=== PATIENT | female | born 1980 | race Caucasian/White ===

== ENCOUNTER 2025-04-08 21:57 | Emergency (ER) | payer MEDICAID, SELFPAY ==
[2025-04-08 22:00] VITALS: BP 182/98
[2025-04-09] MEDS: KEFLEX 500 MG PO (01:04)
--- NOTE | 2025-04-09 21:09 | ED.SKININJ ---
HPI-Injury
General
Chief Complaint: Skin Problem
Source: patient
Exam Limitations: none
Time Seen by Provider: 04/09/25 00:49
Nursing documentation reviewed up to this point in time: agreed with
History of Present Illness-Injury
Is this injury a work related problem?: No
Is pt an associate of [facility]?: No
Initial Injury comments:
Patient to ED with complaint of pain redness and swelling to left great toe. States she had a fungus to this nail and nail fell off. SHe glued an artificial nail to replace original. Now notes redness and swelling. Brought self to ED for eval.
Past History
Past History
ED Past Medical History: None
Review of Systems
Review of Systems
Allergies reviewed?: Yes
All Other Systems: ROS reviewed and negative except as documented in HPI and ROS
Constitutional: Reports no symptoms
EENT: Reports no symptoms
Respiratory: Reports no symptoms
Cardiac: Reports no symptoms
ABD/GI: Reports no symptoms
: Reports no symptoms
Musculoskeletal: Reports no symptoms
Skin: Reports other (pain redness and swelling to left great toe)
Neurological: Reports no symptoms
Psychiatric: Reports no symptoms
Phy Exam
General Physical Exam
General Presentation: well appearing and no apparent distress
General age: appears stated age
General Skin: warm and dry
General Habitus: normal
General Mental: alert
Musculoskeletal Exam
Musculoskeletal Exam: full ROM and neuro vasc intact
Skin Exam
Skin Exam: warm/dry and other (erythema and swelling to left great toe concerning for celllitis. NO dischaarge)
Psychiatric Exam
Psychiatric Exam: normal mood/affect
Course
Orders/Labs/Results
Orders:
Orders
04/09/25 00:55
Cephalexin Monohydrate [Keflex] 500 mg PO NOW STA
Vital Signs
Initial and Last Documented VS:
Initial Vital Signs
Temp Pulse Resp BP Pulse Ox
98.2 F 82 18 182/98 100
04/08/25 22:00 04/08/25 22:00 04/08/25 22:00 04/08/25 22:00 04/08/25 22:00
Last Documented Vital Signs
Temp Pulse Resp BP Pulse Ox
98.2 F 82 18 182/98 100
04/08/25 22:00 04/08/25 22:00 04/08/25 22:00 04/08/25 22:00 04/08/25 22:00
*Critical Care Note
Total Time (30-74mins, 75-104mins- exclusive of procedures): Not Applicable
Update Note
Update Note:
Patient to ED wtih complaint f redness and swelling to left great toe. Full ROM to toe. Neurovasc intact. No discharge. Will place on Keflex qid, recommend warm soaks qid. She will be discharged home, close follow up with PCP. Given instructions
on s/s to return to ED and she is agreeable to plan.
ED Attending Note
-
Portions of this chart may have been created with voice recognition software.� Occasional wrong word or��sound alike� substitutions may have occurred due to the inherent limitations of voice recognition software.
Discharge Plan
Departure
Patient Disposition: Home (Routine Discharge)
Date of Disposition: 04/09/25
Time of Disposition: 00:56
Patient with high blood pressure during this ER visit?: No
Condition: Good
Covid-19: Not Applicable
Discharge Problem:
Cellulitis of toe
Instructions: Cellulitis (skin infection) in adults - Discharge instructions
Prescriptions:
New
cephalexin 500 mg capsule
500 mg PO Q6H 10 Days Qty: 40 0RF
Referrals:
Kathleen Hyman DPM [Active] - (Call on Thursday to schedule your appointment)
NONE,* [Family Provider] -
Activity Restrictions/Additional Instructions:
Return to the emergency department immediately for fever/chills, increasing pain, redness, swelling to your toe, or for any further concerns
Interventions
Interventions:
*Risk Screen - Suicide Last Done: 04/08/25 21:58
*General Assessment Last Done: 04/08/25 21:58
*Neglect/Abuse Screening Last Done: 04/08/25 21:58
*ED- Fall Risk Assessment Last Done: 04/09/25 01:17
*ED COVID-19 Vaccine History Last Done: 04/08/25 21:58
*Nursing Disposition Last Done: 04/09/25 01:17
ED-Skin Assessment Last Done: 04/09/25 01:18
Discharge Date and Time
Discharge Date/Time: 04/09/25 01:18
Print Language: UKRAINIAN
== END 2025-04-09 01:18 | disposition home or self-care (01) ==
LOC: EMR 21:57
PROVIDERS: EMERGENCY PHYSICIAN Student in an Organized Health Care Education/Training Program
DX: L03.032 Cellulitis of left toe (principal); M79.675 Pain in left toe(s); I10 Essential (primary) hypertension
CPT/HCPCS: 99283